=== PATIENT | female | born 1960 | race Hispanic/Latino ===

== ENCOUNTER 2016-03-11 19:00 | Emergency (ER) | payer SELFPAY ==
--- NOTE | 2016-03-11 20:36 | Emergency Department Report ---
History of Present Illness - General Chief Complaint: Overdose Stated Complaint: ALTERED MENTAL STATUS Time Seen by Provider: 03/11/16 20:25 Source: patient, EMS Mode of arrival: Stretcher Limitations: No Limitations - History of Present Illness Initial Comments: 55-year-old female presents to the emergency department via EMS for evaluation after possible drug overdose. EMS reports that the patient was found unresponsive and was being bagged with the nasal trumpet in place. Patient was given 2 mg of intranasal Narcan and became more responsive. Patient states that she has a place on her left leg that has been bothering her. She reports a history of having surgery with pin placement and she is concerned about the patient coming out. She states this has been causing her some discomfort and she has been using marijuana and heroin. Today, she states that she just took too much heroin. She denies trying to harm herself. She also denies any auditory or visual hallucinations. At this time, patient is complaining of mild chest discomfort. There are no other complaints. MD Complaint: accidental overdose -: Sudden, This evening Context: Accidental Overdose: medication error Treatments Prior to Arrival: oxygen, narcan - Related Data Home Medications Medication Instructions Recorded Confirmed Last Taken Omeprazole [PriLOSEC] 40 mg PO DAILY 08/29/13 03/11/16 03/10/16 Allergies Allergy/AdvReac Type Severity Reaction Status Date / Time No Known Allergies Allergy Verified 09/15/13 14:42 ED Review of Systems ROS: Stated complaint: ALTERED MENTAL STATUS Other details as noted in HPI Comment: All other systems reviewed and negative Cardiovascular: chest pain Psychiatric: as per HPI. denies: homicidal thoughts, suicidal thoughts ED Past Medical Hx - Past Medical History Previous Medical History?: Yes Hx Hypertension: No Hx Heart Attack/AMI: No Hx Congestive Heart Failure: No Hx Diabetes: No Hx Deep Vein Thrombosis: No Hx Pulmonary Embolism: No Hx GERD: Yes Hx Liver Disease: Yes (Hepatitis C ) Hx Renal Disease: No Hx Sickle Cell Disease: No Hx Arthritis: No Hx Seizures: No Hx Kidney Stones: No Hx Psychiatric Treatment: Yes (schziophrenia) Hx Asthma: No Hx COPD: No Hx Tuberculosis: No Hx Dementia: No Hx HIV: No - Surgical History Past Surgical History?: Yes Hx Coronary Stent: No Hx Open Heart Surgery: No Hx Pacemaker: No Hx Internal Defibrillator: No Hx Cholecystectomy: No Hx Appendectomy: No Hx Breast Surgery: No Additional Surgical History: 1985. dog bite right thigh 2013. tonsillectomy - Family History Family history: no significant - Social History Smoking Status: Current Every Day Smoker Substance Use Type: Heroin, Marijuana - Medications Home Medications: Home Medications Medication Instructions Recorded Confirmed Last Taken Type Omeprazole [PriLOSEC] 40 mg PO DAILY 08/29/13 03/11/16 03/10/16 History ED Physical Exam - General Limitations: No Limitations General appearance: alert, in no apparent distress - Head Head exam: Present: atraumatic, normocephalic - Eye Eye exam: Present: normal appearance, PERRL, EOMI - ENT ENT exam: Present: normal exam, normal orophraynx, mucous membranes moist - Neck Neck exam: Present: normal inspection, full ROM. Absent: tenderness - Respiratory Respiratory exam: Present: normal lung sounds bilaterally. Absent: respiratory distress - Cardiovascular Cardiovascular Exam: Present: normal rhythm, tachycardia, normal heart sounds - GI/Abdominal GI/Abdominal exam: Present: soft, normal bowel sounds. Absent: distended, tenderness - Extremities Exam Extremities exam: Present: full ROM, other (open wound noted to the lateral aspect of the left lower leg proximal to the lateral malleolus. Macerated skin noted without bleeding or other drainage. Area is not tender to palpation.). Absent: tenderness - Back Exam Back exam: Present: normal inspection, full ROM. Absent: tenderness - Neurological Exam Neurological exam: Present: alert, oriented X3. Absent: motor sensory deficit - Skin Skin exam: Present: warm, dry ED Course Vital Signs 03/11/16 03/11/16 20:02 21:28 Temperature 98.6 F Pulse Rate 116 H Respiratory 20 18 Rate Blood Pressure 127/90 O2 Sat by Pulse 96 99 Oximetry ED Medical Decision Making - Lab Data Result diagrams: 03/11/16 21:34 03/11/16 21:46 - EKG Data -: EKG Interpreted by Me EKG shows normal: sinus rhythm, axis, intervals, QRS complexes, ST-T waves Rate: tachycardia - EKG Data When compared to previous EKG there are: previous EKG unavailable Interpretation: normal EKG - Radiology Data Radiology results: image reviewed interpreted by me: Chest x-ray shows no acute cardiopulmonary abnormality. X-rays of the left tibia and fibula show intact hardware with no evidence of loosening or malposition. - Medical Decision Making Lab and imaging results reviewed and discussed with the patient. Patient has remained asymptomatic in the emergency department after observation. Patient will be discharged home at this time. - Differential Diagnosis accidental overdose, pulmonary edema Critical care attestation.: If time is entered above; I have spent that time in minutes in the direct care of this critically ill patient, excluding procedure time. ED Disposition Clinical Impression: Accidental overdose of heroin Qualifiers: Encounter type: initial encounter Qualified Code(s): T40.1X1A - Poisoning by heroin, accidental (unintentional), initial encounter Disposition: DISCHARGED TO HOME OR SELFCARE Is pt being admited?: No Condition: Stable Instructions: Narcotic Abuse (ED) Referrals: SAIRA COLE MD [Staff Physician] - 3-5 Days Time of Disposition: 23:33
[2016-03-11 21:10] LABS: Urine Drugs of Abuse Note Disclamer
[2016-03-11 22:02] LABS: Bilirubin,Urine Negative (Negative); Ketones,Urine Negative (Negative)
[2016-03-11 22:03] LABS: Blood,Urine Negative (Negative); Leukocyte Esterase,Urine Negative (Negative); Nitrite,Urine Negative (Negative); Protein,Urine <15 mg/dL mg/dL (Negative); Urobilinogen,Urine < 2.0 mg/dL (<2.0); WBC,Urine < 1.0 /HPF (0.0-6.0)
[2016-03-11 22:04] LABS: Mucus,Urine Few /HPF
[2016-03-11 22:09] LABS: Basophils % (Auto) 0.2 % (0.0-1.8); Hematocrit 38.5 % (30.3-42.9); Hemoglobin 12.7 gm/dl (10.1-14.3); Mean Corpuscular HGB Conc 33 % (30-34); Mean Corpuscular Hemoglobin 28 pg (28-32); Mean Corpuscular Volume 85 fl (79-97); Platelet Count 333 K/mm3 (140-440); Red Cell Distribution Width 15.5 % (13.2-15.2); White Blood Count 16.9 K/mm3 (4.5-11.0)
[2016-03-11 23:19] LABS: BUN/Creatinine Ratio 28.33; Blood Urea Nitrogen 17 mg/dL (7-17); Calcium 8.8 mg/dL (8.4-10.2); Carbon Dioxide 22 mmol/L (22-30); Chloride 98.6 mmol/L (98-107); Glucose 191 mg/dL (65-100); Potassium 4.1 mmol/L (3.6-5.0); Sodium 139 mmol/L (137-145)
[2016-03-11 23:20] LABS: Anion Gap 23 mmol/L
[2016-03-11 23:42] VITALS: BP 130/80
--- NOTE | 2016-03-12 07:37 | XRay Report ---
ROUTINE CHEST, TWO VIEWS: HISTORY: chest pain. The trachea, heart, mediastinal contour, lung baltazar and bony thorax are unremarkable. Chronic left rib deformities are suspected. IMPRESSION: Unremarkable chest x-ray.
--- NOTE | 2016-03-12 09:31 | XRay Report ---
LEFT TIBIA AND FIBULA, 2 VIEWS: HISTORY: Leg pain, wound at site of previous surgery. FINDINGS: Previous surgical changes are noted at the distal left lower extremity. There are no comparisons. A single orthopedic screw transverses the distal metaphyseal region of both the tibia and fibula. There is significant lucency or bone loss surrounding this screw. This is just beneath the area of lateral soft tissue swelling. This is highly suspicious for infection or loosening. There are also 2 orthopedic screws which fixate the medial malleolus. There also appears to be minimal lucency surrounding these screws although it is less impressive. There is mild smooth periostitis along the medial surface of the distal tibia. No advanced bony destruction or fracture. IMPRESSION: Suspected infected orthopedic screw in the distal left lower extremity. Osteomyelitis is suspected. Consultation with orthopedics is recommended.
== END 2016-03-11 23:42 | disposition home or self-care (01) ==
LOC: ED 19:00
DX: T40.1X1A Poisoning by heroin, accidental (unintentional), initial encounter (principal); F17.200 Nicotine dependence, unspecified, uncomplicated; F12.90 Cannabis use, unspecified, uncomplicated; K21.9 Gastro-esophageal reflux disease without esophagitis; F20.9 Schizophrenia, unspecified
CPT/HCPCS: 36415; 71020; 73590; 80048; 80307; 81001; 85025; 93005; 93010; 99284; G0480; 80320